=== PATIENT | male | born 1970 | race Two or more races ===

== ENCOUNTER → 2020-12-16 | Emergency (ER) | payer OTHER | END | disposition left against medical advice (07) | LOC: ER 09:07 | DX: Z53.20 Procedure and treatment not carried out because of patient's decision for unspecified reasons (principal) ==

== ENCOUNTER 2021-09-11 12:49 | Emergency (ER) | payer OTHER ==
[~2021-09-11] VITALS: Ht 172.7 cm; Wt 74.8 kg
[2021-09-11] MEDS ORDERED: MEDROLPACK PO (16:15)
== END 2021-09-11 16:21 | disposition home or self-care (01) ==
LOC: ER 12:49
DX: L30.9 Dermatitis, unspecified (principal); T78.40XA Allergy, unspecified, initial encounter

== ENCOUNTER → 2022-02-28 | Emergency (ER) | payer OTHER ==
[~2022-02-28] MED LIST: MEDROLPACK PO
== END | disposition left against medical advice (07) ==
LOC: ER 14:58
DX: Z53.21 Procedure and treatment not carried out due to patient leaving prior to being seen by health care provider (principal)